=== PATIENT | female | born 1990 | race African-American/Black ===

== ENCOUNTER 2018-07-25 19:01 | Emergency (ER) | payer OTHER ==
[~2018-07-25] VITALS: Ht 162.6 cm; Wt 70.8 kg
[~2018-07-25 19:01] MED LIST: INVEGA SUS39 MG/0.25 IM; KEFLEX500 M1 PO; SEROQUEL 25 MG25 M1 PO; TRAMADOL 50 MG50 MG PO
[2018-07-25 19:11] VITALS: BP 115/67
[2018-07-25 19:26] LABS: URINE BILIRUBIN NEGATIVE (Negative); URINE BLOOD NEGATIVE (Negative); URINE CLARITY CLEAR; URINE COLOR YELLOW; URINE GLUCOSE-RANDOM* NEGATIVE (Negative); URINE KETONES NEGATIVE (Negative); URINE PROTEIN (DIPSTICK) NEGATIVE (Negative); URINE SPECIFIC GRAVITY 1.015 (1.005-1.035)
[2018-07-25 19:28] LABS: URINE LEUKOCYTES-REFLEX 1+ (Negative); URINE NITRITE-REFLEX POSITIVE (Negative)
[2018-07-25 19:35] LABS: BACTERIA-REFLEX >30 Many /HPF (None Seen); CASTS None Seen /LPF (None Seen); CRYSTALS None Seen /LPF (None Seen); SQUAMOUS 4-10 Moderate /LPF (0-3); URINE RBC 3-10 Few /HPF (0-2); WBC CLUMPS Few (None Seen)
[2018-07-25] MEDS ORDERED: KEFLEX500 M1 PO (19:44)
== END 2018-07-25 20:21 | disposition home or self-care (01) ==
LOC: ER 19:01
PROVIDERS: Emergency Medicine
DX: N39.0 Urinary tract infection, site not specified (principal); F31.9 Bipolar disorder, unspecified; F17.210 Nicotine dependence, cigarettes, uncomplicated

== ENCOUNTER 2019-01-16 12:03 | Emergency (ER) | payer OTHER | END 2019-01-16 12:12 | disposition left against medical advice (07) | LOC: ER 12:03 | DX: Z53.21 Procedure and treatment not carried out due to patient leaving prior to being seen by health care provider (principal) ==

== ENCOUNTER 2019-02-06 17:18 | Emergency (ER) | payer OTHER ==
[~2019-02-06] VITALS: Ht 162.6 cm; Wt 68.0 kg
[2019-02-06 18:14] LABS: ABSOLUTE NEUTROPHILS 4.8 thou/uL (1.4-8.2); BASOPHILS 0.9 % (0.0-2.0); EOSINOPHILS 0.2 % (0.0-3.0); HEMATOCRIT 38.5 % (37.0-47.0); HEMOGLOBIN 13.3 gm/dL (12.0-15.0); LYMPHOCYTES 26.3 % (24.0-44.0); MCH 33.2 pg (26.0-34.0); MCHC 34.5 g/dL (28.0-37.0); MCV 96.3 fL (80.0-100.0); MONOCYTES 5.5 % (1.0-8.0); PLATELET COUNT 296 thou/uL (150-400); POLYS 67.1 % (36.0-66.0); RDW 13.4 % (10.5-14.5); WBC 7.1 thou/uL (4.0-11.0)
[2019-02-06 19:22] LABS: URINE BILIRUBIN NEGATIVE (Negative); URINE BLOOD 1+ (Negative); URINE CLARITY CLEAR; URINE COLOR YELLOW; URINE GLUCOSE-RANDOM* NEGATIVE (Negative); URINE KETONES 1+ (Negative); URINE LEUKOCYTES-REFLEX TRACE (Negative); URINE NITRITE-REFLEX NEGATIVE (Negative); URINE PROTEIN (DIPSTICK) TRACE (Negative); URINE SPECIFIC GRAVITY 1.015 (1.005-1.035)
[2019-02-06 19:29] LABS: AMP/METHAMP POSITIVE (Negative); BARBITURATES Negative (Negative); BENZODIAZEPINES Negative (Negative); COCAINE Negative (Negative); METHADONE Negative (Negative); OPIATES Negative (Negative); PCP Negative (Negative)
[2019-02-06 19:30] LABS: BACTERIA-REFLEX 1-9 Few /HPF (None Seen); CASTS None Seen /LPF (None Seen); MUCUS >6 Heavy strn/LPF (None Seen); SQUAMOUS 4-10 Moderate /LPF (0-3); URINE RBC 3-10 Few /HPF (0-2); URINE WBC-REFLEX 0-5 Rare /HPF (0-5)
[2019-02-06 19:31] LABS: CRYSTALS None Seen /LPF (None Seen)
--- NOTE | 2019-02-07 07:57 | EKG ---
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1990 Requested By: Cecille Fenton Order Number: [id number] MD: Julio Ramirez Measurements Intervals [place] Rate: 120 P: 51 WA: 86 QRS: 53 QRSD: 75 T: 5 QT: 313 QTc: 443 Interpretive Statements Sinus tachycardia Otherwise normal tracing No previous ECG available for comparison Electronically Signed On 02-07-2019 7:57:29 CDT by Jluio Ramirez [email or web address] ��������������������������������������������� <ELECTRONICALLY SIGNED> ���������������������������������������� By: Julio Ramirez MD, [facility] ��������������������������������������������� 02/07/19 0757 1816 1816 Julio Ramirez MD, FACC /EPI
[2019-02-07 19:19] VITALS: BP 108/79
== END 2019-02-07 19:20 | disposition home or self-care (01) ==
LOC: ER 17:18
PROVIDERS: Nurse Practitioner Family
DX: F15.20 Other stimulant dependence, uncomplicated (principal); F20.9 Schizophrenia, unspecified; F29 Unspecified psychosis not due to a substance or known physiological condition; F31.9 Bipolar disorder, unspecified; F17.210 Nicotine dependence, cigarettes, uncomplicated

== ENCOUNTER 2019-02-18 21:29 | Emergency (ER) | payer OTHER ==
[~2019-02-18] VITALS: Ht 162.6 cm; Wt 68.0 kg
[2019-02-18 22:06] LABS: URINE BILIRUBIN NEGATIVE (Negative); URINE BLOOD NEGATIVE (Negative); URINE CLARITY CLEAR; URINE COLOR YELLOW; URINE GLUCOSE-RANDOM* NEGATIVE (Negative); URINE KETONES TRACE (Negative); URINE LEUKOCYTES-REFLEX NEGATIVE (Negative); URINE NITRITE-REFLEX NEGATIVE (Negative); URINE PROTEIN (DIPSTICK) TRACE (Negative); URINE SPECIFIC GRAVITY >= 1.030 (1.005-1.035); URINE UROBILINOGEN 0.2 E.U./dl (0.2-1.0)
[2019-02-18 22:14] LABS: AMP/METHAMP POSITIVE (Negative); BARBITURATES Negative (Negative); BENZODIAZEPINES Negative (Negative); COCAINE Negative (Negative); METHADONE Negative (Negative); OPIATES Negative (Negative); PCP Negative (Negative)
[2019-02-18 23:38] LABS: ABSOLUTE NEUTROPHILS 6.6 thou/uL (1.4-8.2); BASOPHILS 0.5 % (0.0-2.0); EOSINOPHILS 0.6 % (0.0-3.0); HEMATOCRIT 41.3 % (37.0-47.0); HEMOGLOBIN 14.1 gm/dL (12.0-15.0); LYMPHOCYTES 26.3 % (24.0-44.0); MCHC 34.2 g/dL (28.0-37.0); MCV 96.3 fL (80.0-100.0); MONOCYTES 5.1 % (1.0-8.0); PLATELET COUNT 326 thou/uL (150-400); POLYS 67.5 % (36.0-66.0); RBC 4.29 mil/uL (4.20-5.00); RDW 13.1 % (10.5-14.5); WBC 9.8 thou/uL (4.0-11.0)
[2019-02-18 23:46] LABS: ANION GAP 14 mmol/L (7-16); BUN 7 mg/dL (7-18); CALCIUM 10.1 mg/dL (8.5-10.1); CHLORIDE 100 mmol/L (98-107); CO2 26 mmol/L (21-32); CREATININE 0.9 mg/dL (0.6-1.0); GLUCOSE 85 mg/dL (74-106); POTASSIUM 3.5 mmol/L (3.5-5.1); SODIUM 140 mmol/L (136-145)
[2019-02-18 23:56] LABS: ALBUMIN 4.5 g/dL (3.4-5.0); SGOT 30 U/L (15-37); SGPT 22 U/L (30-65); TOTAL BILIRUBIN 0.7 mg/dL (<0.1-1.0); TOTAL PROTEIN 9.1 g/dL (6.4-8.2); TROPONIN-I <0.06 ng/mL (<0.06)
[2019-02-19 04:58] VITALS: BP 106/76
--- NOTE | 2019-02-19 07:57 | EKG ---
[address] [address] [facility] [place] [address] ELECTROCARDIOGRAM REPORT Name: HUSSEIN GUPTA Room #: 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 : 1990 Requested By: eCcille Fenton Order Number: [id number] MD: Julio Ramirez Measurements Intervals [place] Rate: 83 P: 22 AL: 141 QRS: 68 QRSD: 84 T: 29 QT: 393 QTc: 462 Interpretive Statements Sinus rhythm Nonspecific T wave abnormality Compared to ECG 02/06/2019 18:16:20 Sinus tachycardia no longer present Electronically Signed On 02-19-2019 7:57:05 CDT by Julio Ramirez [email or web address] ��������������������������������������������� <ELECTRONICALLY SIGNED> ���������������������������������������� By: Julio Ramirez MD, [facility] ��������������������������������������������� 02/19/19 0757 2211 10 Julio Ramirez MD, FACC /EPI
== END 2019-02-19 05:01 | disposition home or self-care (01) ==
LOC: ER 21:29
PROVIDERS: Nurse Practitioner Family
DX: F15.959 Other stimulant use, unspecified with stimulant-induced psychotic disorder, unspecified (principal); I95.1 Orthostatic hypotension; F20.9 Schizophrenia, unspecified; F31.9 Bipolar disorder, unspecified; F17.210 Nicotine dependence, cigarettes, uncomplicated

== ENCOUNTER 2019-03-01 02:28 | Emergency (ER) | payer OTHER ==
[~2019-03-01] VITALS: Ht 162.6 cm; Wt 67.6 kg
[2019-03-01 02:52] LABS: ABSOLUTE NEUTROPHILS 4.8 thou/uL (1.4-8.2); BASOPHILS 0.7 % (0.0-2.0); EOSINOPHILS 0.6 % (0.0-3.0); HEMOGLOBIN 13.6 gm/dL (12.0-15.0); LYMPHOCYTES 29.1 % (24.0-44.0); MCH 32.9 pg (26.0-34.0); MCV 96.8 fL (80.0-100.0); MONOCYTES 4.9 % (1.0-8.0); PLATELET COUNT 342 thou/uL (150-400); POLYS 64.7 % (36.0-66.0); RBC 4.13 mil/uL (4.20-5.00); RDW 13.6 % (10.5-14.5); WBC 7.5 thou/uL (4.0-11.0)
[2019-03-01 03:01] LABS: CALCIUM 9.8 mg/dL (8.5-10.1); CREATININE 0.9 mg/dL (0.6-1.0); POTASSIUM 3.3 mmol/L (3.5-5.1)
[2019-03-01 03:20] LABS: URINE BILIRUBIN NEGATIVE (Negative); URINE BLOOD TRACE (Negative); URINE CLARITY CLEAR; URINE COLOR YELLOW; URINE GLUCOSE-RANDOM* NEGATIVE (Negative); URINE KETONES NEGATIVE (Negative); URINE NITRITE-REFLEX NEGATIVE (Negative); URINE PROTEIN (DIPSTICK) NEGATIVE (Negative); URINE UROBILINOGEN 0.2 E.U./dl (0.2-1.0)
[2019-03-01 03:30] LABS: AMP/METHAMP POSITIVE (Negative); BARBITURATES Negative (Negative); BENZODIAZEPINES Negative (Negative); COCAINE Negative (Negative); METHADONE Negative (Negative); OPIATES Negative (Negative); PCP Negative (Negative); URINE LEUKOCYTES-REFLEX 1+ (Negative)
[2019-03-01 03:39] LABS: BACTERIA-REFLEX 1-9 Few /HPF (None Seen); CASTS None Seen /LPF (None Seen); CRYSTALS None Seen /LPF (None Seen); MUCUS 0-3 Light strn/LPF (None Seen); SQUAMOUS 0-3 Few /LPF (0-3); URINE RBC 0-2 Rare /HPF (0-2); URINE WBC-REFLEX 6-15 Few /HPF (0-5); WBC CLUMPS Rare (None Seen)
[2019-03-01 05:22] VITALS: BP 104/70
== END 2019-03-01 05:28 | disposition designated cancer center or children's hospital (05) ==
LOC: ER 02:28
PROVIDERS: Student in an Organized Health Care Education/Training Program
DX: F22 Delusional disorders (principal); F17.210 Nicotine dependence, cigarettes, uncomplicated; F31.9 Bipolar disorder, unspecified; F20.9 Schizophrenia, unspecified

== ENCOUNTER 2019-03-28 19:38 | Inpatient (IN) | payer OTHER ==
[~2019-03-28] VITALS: Ht 162.6 cm; Wt 66.2 kg
[2019-03-28 20:42] LABS: ABSOLUTE NEUTROPHILS 12.2 thou/uL (1.4-8.2); BASOPHILS 0.3 % (0.0-2.0); HEMATOCRIT 33.6 % (37.0-47.0); HEMOGLOBIN 11.6 gm/dL (12.0-15.0); LYMPHOCYTES 7.5 % (24.0-44.0); MCH 32.2 pg (26.0-34.0); MCHC 34.6 g/dL (28.0-37.0); MCV 93.2 fL (80.0-100.0); MONOCYTES 6.5 % (1.0-8.0); PLATELET COUNT 210 thou/uL (150-400); POLYS 85.7 % (36.0-66.0); WBC 14.2 thou/uL (4.0-11.0)
[2019-03-28 20:55] LABS: CALCIUM 8.4 mg/dL (8.5-10.1); CREATININE 1.1 mg/dL (0.6-1.0)
[2019-03-28 20:56] LABS: POTASSIUM 2.9 mmol/L (3.5-5.1)
--- NOTE | 2019-03-28 20:56 | NUR ---
NURSE, MINDA, NOTIFIED OF CRITICAL POTASSIUM 2.9 CALLED BY LAB
[2019-03-28 21:00] LABS: ALBUMIN 3.1 g/dL (3.4-5.0); TOTAL BILIRUBIN 2.1 mg/dL (<0.1-1.0); TOTAL PROTEIN 7.8 g/dL (6.4-8.2)
[2019-03-28 22:12] LABS: URINE BILIRUBIN 1+ (Negative); URINE BLOOD 3+ (Negative); URINE CLARITY CLEAR; URINE COLOR YELLOW; URINE GLUCOSE-RANDOM* NEGATIVE (Negative); URINE KETONES 1+ (Negative); URINE PROTEIN (DIPSTICK) 2+ (Negative); URINE SPECIFIC GRAVITY 1.025 (1.005-1.035)
[2019-03-28 22:15] LABS: URINE LEUKOCYTES-REFLEX 2+ (Negative); URINE NITRITE-REFLEX POSITIVE (Negative)
[2019-03-28 22:15] LABS: MAGNESIUM 1.8 mg/dL (1.8-2.4)
[2019-03-28 22:20] LABS: AMP/METHAMP Negative (Negative); BARBITURATES Negative (Negative); BENZODIAZEPINES Negative (Negative); COCAINE Negative (Negative); METHADONE Negative (Negative); OPIATES Negative (Negative); PCP Negative (Negative)
[2019-03-28 22:24] LABS: SQUAMOUS 4-10 Moderate /LPF (0-3); URINE RBC 0-2 Rare /HPF (0-2); URINE WBC-REFLEX >25 Many /HPF (0-5); WBC CLUMPS Moderate (None Seen)
[2019-03-28 22:25] LABS: CASTS None Seen /LPF (None Seen); CRYSTALS None Seen /LPF (None Seen); MUCUS 0-3 Light strn/LPF (None Seen)
[2019-03-29] VITALS (8 sets, daily range): BP systolic 77–171; BP diastolic 47–140
--- NOTE | 2019-03-29 00:16 | NUR ---
HANDOFF TOOL SENT TO [facility]
[2019-03-29 06:17] LABS: HEMATOCRIT 28.5 % (37.0-47.0); HEMOGLOBIN 9.9 gm/dL (12.0-15.0); MCH 33.2 pg (26.0-34.0); MCHC 34.6 g/dL (28.0-37.0); MCV 95.9 fL (80.0-100.0); RBC 2.97 mil/uL (4.20-5.00); RDW 12.8 % (10.5-14.5); WBC 10.5 thou/uL (4.0-11.0)
[2019-03-29 06:27] LABS: CALCIUM 6.7 mg/dL (8.5-10.1); POTASSIUM 3.9 mmol/L (3.5-5.1)
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
--- NOTE | 2019-03-29 11:14 | NUR ---
ASSUMED PATIENT CARE AT 0715. A&OX4. NO COMPLAINTS OF PAIN. PATIENT HAS BEEN INCONTINENT OF BOWEL TWICE SO FAR TODAY. STOOLS ARE LIQUID. CDIFF PENDING. K+ LOW ON ADMIT AND HAS BEEN CORRECTED. GI CONSULTED. CLEAR LIQUID DIET. ANTIBIOTICS STARTED. WORKING TOWARDS DISCHARGE GOALS.
[2019-03-30 04:22] VITALS: BP 98/56
[2019-03-30 06:01] LABS: HEMATOCRIT 30.9 % (37.0-47.0); HEMOGLOBIN 10.5 gm/dL (12.0-15.0); MCH 32.7 pg (26.0-34.0); MCHC 33.9 g/dL (28.0-37.0); MCV 96.3 fL (80.0-100.0); RBC 3.21 mil/uL (4.20-5.00); RDW 13.1 % (10.5-14.5); WBC 6.7 thou/uL (4.0-11.0)
[2019-03-30 06:27] LABS: ALBUMIN 2.4 g/dL (3.4-5.0); CALCIUM 8.3 mg/dL (8.5-10.1); CREATININE 0.9 mg/dL (0.6-1.0); POTASSIUM 3.8 mmol/L (3.5-5.1); TOTAL BILIRUBIN 0.8 mg/dL (<0.1-1.0); TOTAL PROTEIN 6.6 g/dL (6.4-8.2)
[2019-03-30 07:16] VITALS: BP 96/51
--- NOTE | 2019-03-30 07:45 | NUR ---
Pt. taken off isolation since C diff came back negative. Temp 100.4 , tylenol given and temp down to 99.4. She reported 2 episodes of loose bm this shift and stated it is slowing down. No nausea or vomiting and tolerating clear liquids diet. Pt. provided bedside commode due to urgency. She slept fair during the night. Will continue to monitor.
[2019-03-30 11:15] VITALS: BP 109/65
[2019-03-30 12:47] VITALS: BP 109/65
--- NOTE | 2019-03-30 13:58 | NUR ---
assumed care of pt at 0700. pt is drowsey but orientated. pt denies complaints of pain, n/v. pt reports that GI urgency/diarrhea has improved and that she is feeling better. pt is progressing toward poc and dc goals. will continue to monitor and assess.
--- NOTE | 2019-03-30 14:03 | NUR ---
pt to dc home. iv and tele dc'd. pt's belongings gathered and sent with pt. pt escorted off of unit at 1400 by transport volunteer via w/c to private vehicle to dc home with family.
--- NOTE | 2019-03-30 15:12 | NUR ---
Consult received. SW reviewed chart and spoke with attending physician. Pt was admitted from home due to fever. Pt with hx of meth use. Pt medically stable for discharge home today. Pt discharged prior to SW visit. Pt's family provided transportation home. Pt has [place]-Medicaid. No SW needs identified, but is available to assist should needs arise.
== END 2019-03-30 15:38 | disposition home or self-care (01) | DRG 872 ==
LOC: ER 19:38 → EROBS 21:59 → 3W 21:59 → ENTRNSPT 03-30 13:52 → EDTRNSPTSTS 03-30 13:55 → 3W 03-30 15:38
PROVIDERS: Emergency Medicine; Nurse Practitioner Family; ADMIT Internal Medicine
DX: A41.9 Sepsis, unspecified organism (principal); N39.0 Urinary tract infection, site not specified; E87.1 Hypo-osmolality and hyponatremia; K52.9 Noninfective gastroenteritis and colitis, unspecified; E87.6 Hypokalemia; K80.80 Other cholelithiasis without obstruction; F20.9 Schizophrenia, unspecified; F31.9 Bipolar disorder, unspecified; F10.10 Alcohol abuse, uncomplicated; Y90.9 Presence of alcohol in blood, level not specified; F17.210 Nicotine dependence, cigarettes, uncomplicated; I95.9 Hypotension, unspecified; F15.10 Other stimulant abuse, uncomplicated; Z79.899 Other long term (current) drug therapy
CPT/HCPCS: 10879

== ENCOUNTER 2019-05-07 15:56 | Emergency (ER) | payer OTHER ==
[~2019-05-07] VITALS: Ht 162.6 cm; Wt 65.8 kg
[~2019-05-07 15:56] MED LIST changes: +ABILIFY10 MG PO; +BENZTROPINE MES1 MG PO; +BENZTROPINE MESY2 MG PO; +CIPRO250 M1 PO; +ERGOCALCIF50000 UNIT PO; +FLAGYL 250 MG250 MG PO; +HALDOL 0.5 MG0.5 MG PO; +HYDROXYZINE HCL25 M1 PO; +HYDROXYZINE HCL50 MG PO; +MINIPRESS2 MG PO
[2019-05-07] MEDS ORDERED: HALDOL 0.5 MG0.5 M1 PO (16:04)
[2019-05-07] MEDS ORDERED: CLEOCIN HCL150 MG PO (16:48)
[2019-05-07 17:02] VITALS: BP 127/86
== END 2019-05-07 17:03 | disposition home or self-care (01) ==
LOC: ER 15:56
DX: K05.10 Chronic gingivitis, plaque induced (principal); F17.210 Nicotine dependence, cigarettes, uncomplicated; F31.9 Bipolar disorder, unspecified; F20.9 Schizophrenia, unspecified

== ENCOUNTER 2020-04-18 01:07 | Inpatient (IN) | payer OTHER ==
[~2020-04-18] VITALS: Ht 162.6 cm; Wt 79.8 kg
[~2020-04-18 01:07] MED LIST changes: +CLEOCIN HCL150 MG PO; +HALDOL 0.5 MG0.5 M1 PO
[2020-04-18 01:09] VITALS: BP 144/83
[2020-04-18] MEDS ORDERED: DEPO-SUBQ104 MG/0.6 (01:16)
[2020-04-18 01:38] LABS: ABSOLUTE NEUTROPHILS 5.1 thou/uL (1.4-8.2); BASOPHILS 0.3 % (0.0-2.0); EOSINOPHILS 0.9 % (0.0-3.0); HEMATOCRIT 38.9 % (37.0-47.0); HEMOGLOBIN 13.2 gm/dL (12.0-15.0); LYMPHOCYTES 28.6 % (24.0-44.0); MCH 34.8 pg (26.0-34.0); MCHC 33.9 g/dL (28.0-37.0); MCV 102.8 fL (80.0-100.0); MONOCYTES 4.2 % (1.0-8.0); PLATELET COUNT 317 thou/uL (150-400); RBC 3.78 mil/uL (4.20-5.00); RDW 13.5 % (10.5-14.5); WBC 7.8 thou/uL (4.0-11.0)
[2020-04-18 01:45] LABS: ALBUMIN 3.1 g/dL (3.4-5.0); ANION GAP 13 mmol/L (7-16); BUN 7 mg/dL (7-18); CALCIUM 7.6 mg/dL (8.5-10.1); CHLORIDE 101 mmol/L (98-107); CO2 24 mmol/L (21-32); GLUCOSE 129 mg/dL (74-106); SALICYLATE 4.4 mg/dL (2.8-20.0); SGOT 58 U/L (15-37); SGPT 46 U/L (30-65); SODIUM 138 mmol/L (136-145); TOTAL BILIRUBIN 0.3 mg/dL (0.2-1.0); TOTAL PROTEIN 6.8 g/dL (6.4-8.2)
[2020-04-18 02:00] LABS: POTASSIUM 2.8 mmol/L (3.5-5.1)
[2020-04-18 02:04] LABS: URINE BILIRUBIN NEGATIVE (Negative); URINE BLOOD 1+ (Negative); URINE CLARITY SL CLOUDY; URINE COLOR YELLOW; URINE GLUCOSE-RANDOM* NEGATIVE (Negative); URINE KETONES NEGATIVE (Negative); URINE LEUKOCYTES-REFLEX TRACE (Negative); URINE NITRITE-REFLEX POSITIVE (Negative); URINE PROTEIN (DIPSTICK) 2+ (Negative); URINE SPECIFIC GRAVITY 1.025 (1.005-1.035)
[2020-04-18 02:13] LABS: AMP/METHAMP Negative (Negative); BARBITURATES Negative (Negative); BENZODIAZEPINES Negative (Negative); COCAINE Negative (Negative); METHADONE Negative (Negative); OPIATES Negative (Negative); PCP Negative (Negative)
[2020-04-18 02:18] LABS: MAGNESIUM 1.9 mg/dL (1.8-2.4); PHOSPHORUS 2.6 mg/dL (2.5-4.9)
[2020-04-18 02:40] LABS: SQUAMOUS 4-10 Moderate /LPF (0-3); URINE RBC 3-10 Few /HPF (0-2); URINE WBC-REFLEX 6-15 Few /HPF (0-5)
[2020-04-18 02:41] LABS: CRYSTALS None Seen /LPF (None Seen); HYALINE CASTS 0-3 Few /LPF (None Seen); MUCUS 0-3 Light strn/LPF (None Seen)
[2020-04-18] MEDS ORDERED: NAPROSYN500 MG PO (03:40)
[2020-04-18] MEDS ORDERED: TRAMADOL 50 MG50 MG PO (03:40)
[2020-04-18] MEDS ORDERED: POTASSIUM20 PO (06:06)
[2020-04-18 09:55] VITALS: BP 123/79
[2020-04-18 10:06] VITALS: BP 137/84
[2020-04-18 10:39] VITALS: BP 130/81
--- NOTE | 2020-04-18 14:06 | EKG ---
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
--- NOTE | 2020-04-18 14:49 | NUR ---
PT DISCHARGING TODAY TO HOME WITH HH REFERRAL FAXED TO [facility] AND THEY COULD ACCEPT BUT WOULD NOT BE ABLE TO SEE PT TIL TUESDAY SO CANCELLED THAT REFERRAL. FAXED REFERRAL TO [facility] WITH [facility] IN INTAKE AND SHE CAN ACCEPT AND START VISITS ON TUESDAY MORNING. FAXED DC ORDERS/SUMMARY RECEIVED CONFIRMATION AND [facility] WILL NOTIFY PT TIME OF VISITS.
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
[2020-04-18 16:15] VITALS: BP 157/95
[2020-04-18 16:39] VITALS: BP 157/95
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
--- NOTE | 2020-04-18 17:03 | NUR ---
Admitted pt from ER due to Lt elbow fracture, with splint in place; arrived in the [place] at 10:30am, transferred to bed safely. Vital signs stable. On room air. On regular diet- tolerating well; no nausea, no vomiting and no abdominal pain noted. With SL at R hand- intact and flushing well. Continent of bowel and bladder- able to use the toilet. Up ad brielle, independent with ADLs. Admission history, education and assessment completed; forms signed. Followed up with Dr Tucker re: admission orders, pt with no regular and PRN medications prescribed, no IV fluids prescribed as well- as per Dr Tucker he'll review orders. CM talked to patient, resource numbers given to her; no availability for placement today, CM called facility, CM advised pt to keep calling facility, cab voucher left at pt's chart just incase facility had an available bed. Pt requested to be discharged at 1700- informed pt that she currently don't have any discharge orders yet but will let physician know- Dr Tucker contacted; he will call pt and talk to her; with telephone order for Potassium chloride tablet- 40meqs PO, one time- orders made- pharmacy to verify medication prior to administration, a/w availability of medication. Verified with Dr Tucker if pt is to be discharged or AMA, as per Dr Tucker- he'll put in discharge orders, informed pt that physician currently putting in discharge orders, pt said she could not wait anymore and needs to leave right now, pt refusing to take Potassium as well; physician informed- pt to sign AMA form instead; Dr Tucker informed as well re: CM update re: placement, no availability. Pt signed AMA form- pt informed and aware re: risks of going home against medical advise. IV discontinued. Pt left the unit with her personal belongings.
== END 2020-04-18 17:54 | disposition left against medical advice (07) | DRG 563 ==
LOC: ER 01:07 → EROBS 09:24 → 4W 09:24
PROVIDERS: Emergency Medicine; ADMIT Internal Medicine; ATTEND Internal Medicine
PROC: 2W3BX1Z Immobilization of Left Upper Arm using Splint (ICD-10-PCS; principal; 2020-04-18)
DX: S52.122A Displaced fracture of head of left radius, initial encounter for closed fracture (principal); F31.9 Bipolar disorder, unspecified; F10.129 Alcohol abuse with intoxication, unspecified; E83.51 Hypocalcemia; E87.6 Hypokalemia; D53.9 Nutritional anemia, unspecified; F17.210 Nicotine dependence, cigarettes, uncomplicated; R45.6 Violent behavior; Z53.29 Procedure and treatment not carried out because of patient's decision for other reasons; X58.XXXA Exposure to other specified factors, initial encounter; Y93.89 Activity, other specified; Y92.89 Other specified places as the place of occurrence of the external cause; Y99.8 Other external cause status
CPT/HCPCS: 10047; 27000

== ENCOUNTER 2020-06-10 11:36 | Emergency (ER) | payer OTHER ==
[~2020-06-10] VITALS: Ht 162.6 cm; Wt 74.8 kg
[~2020-06-10 11:36] MED LIST changes: +DEPO-SUBQ104 MG/0.6; +NAPROSYN500 MG PO; +POTASSIUM20 PO
[2020-06-10 12:11] LABS: URINE BILIRUBIN NEGATIVE (Negative); URINE BLOOD 2+ (Negative); URINE CLARITY HAZY; URINE COLOR YELLOW; URINE GLUCOSE-RANDOM* NEGATIVE (Negative); URINE KETONES NEGATIVE (Negative); URINE LEUKOCYTES-REFLEX 3+ (Negative); URINE NITRITE-REFLEX POSITIVE (Negative); URINE PROTEIN (DIPSTICK) TRACE (Negative); URINE UROBILINOGEN 0.2 E.U./dl (0.2-1.0)
[2020-06-10] MEDS ORDERED: PREDNISONE 20 M20 MG PO (12:44)
[2020-06-10] MEDS ORDERED: KEFLEX500 M1 PO (12:44)
[2020-06-10] MEDS ORDERED: TRIAMCINOLONE A80 G2 TOP (12:44)
[2020-06-10 12:50] LABS: CASTS None Seen /LPF (None Seen); SQUAMOUS >10 Many /LPF (0-3); URINE WBC-REFLEX >25 Many /HPF (0-5)
[2020-06-10 12:51] LABS: BACTERIA-REFLEX >30 Many /HPF (None Seen); CRYSTALS None Seen /LPF (None Seen); URINE RBC 0-2 Rare /HPF (0-2); WBC CLUMPS Packed (None Seen)
[2020-06-10 13:12] VITALS: BP 114/92
== END 2020-06-10 13:13 | disposition home or self-care (01) ==
LOC: ER 11:36
PROVIDERS: Physician Assistant
DX: S80.211A Abrasion, right knee, initial encounter (principal); T78.49XA Other allergy, initial encounter; N39.0 Urinary tract infection, site not specified; L30.9 Dermatitis, unspecified; H92.01 Otalgia, right ear; F31.9 Bipolar disorder, unspecified; F20.9 Schizophrenia, unspecified; F17.210 Nicotine dependence, cigarettes, uncomplicated; Z79.899 Other long term (current) drug therapy; W19.XXXA Unspecified fall, initial encounter; X58.XXXA Exposure to other specified factors, initial encounter; Y93.89 Activity, other specified; Y92.89 Other specified places as the place of occurrence of the external cause; Y99.8 Other external cause status